=== PATIENT | male | born 1985 | race Caucasian/White ===

== ENCOUNTER 2016-09-05 19:41 | Emergency (ER) | payer OTHER ==
[2016-09-05 20:47] LABS: BILIRUBIN NEGATIVE (NEGATIVE); BLOOD TRACE-LYSED Ery/uL (NEGATIVE); CLARITY CLEAR (CLEAR); COLOR YELLOW (YELLOW); GLUCOSE (U) NORMAL (NORMAL); KETONE (U) NEGATIVE (NEGATIVE); LEUKOCYTES NEGATIVE Leu/uL (NEGATIVE); NITRITE NEGATIVE (NEGATIVE); PROTEIN NEGATIVE (NEGATIVE); UROBILINOGEN 0.2 mg/dL (0.2-1.0)
[2016-09-05 21:05] LABS: BACTERIA TRACE; SQUAMOUS EPITHELIAL CELLS RARE; URINARY WBC RARE
== END 2016-09-05 21:08 | disposition left against medical advice (07) ==
LOC: FER 19:41
PROVIDERS: Emergency Medicine
DX: R19.8 Other specified symptoms and signs involving the digestive system and abdomen (principal); Z53.8 Procedure and treatment not carried out for other reasons
CPT/HCPCS: 81001

== ENCOUNTER 2016-11-11 19:16 | Emergency (ER) | payer OTHER ==
[2016-11-11 21:16] LABS: BILIRUBIN NEGATIVE (NEGATIVE); BLOOD 1+ Ery/uL (NEGATIVE); CLARITY CLEAR (CLEAR); COLOR YELLOW (YELLOW); GLUCOSE (U) NORMAL (NORMAL); KETONE (U) NEGATIVE (NEGATIVE); LEUKOCYTES NEGATIVE Leu/uL (NEGATIVE); NITRITE NEGATIVE (NEGATIVE); PROTEIN TRACE (LOW) mg/dL (NEGATIVE); SPECIFIC GRAVITY >=1.030 (1.001-1.030)
[2016-11-11 21:22] LABS: BACTERIA TRACE; MUCOUS MODERATE
[2016-11-11 21:26] LABS: BENZODIAZEPINES NEGATIVE (NEGATIVE)
[2016-11-11 21:27] LABS: AMPHETAMINES POSITIVE (NEGATIVE); BARBITURATES NEGATIVE (NEGATIVE); COCAINE NEGATIVE (NEGATIVE); MARIJUANA (THC) NEGATIVE (NEGATIVE); METHADONE POSITIVE (NEGATIVE); TRICYCLIC ANTIDEPRESSANT NEGATIVE (NEGATIVE)
== END 2016-11-11 23:16 | disposition home or self-care (01) ==
LOC: FER 19:16
PROVIDERS: Emergency Medicine Emergency Medical Services
DX: M54.2 Cervicalgia (principal); M54.6 Pain in thoracic spine; M54.5 Low back pain; R51 Headache; R10.812 Left upper quadrant abdominal tenderness; R10.32 Left lower quadrant pain; V49.9XXA Car occupant (driver) (passenger) injured in unspecified traffic accident, initial encounter; Y92.410 Unspecified street and highway as the place of occurrence of the external cause
CPT/HCPCS: 36415; 70450; 72125; 72128; 72131; 80305; 81001; G0480; J1885